=== PATIENT | female | born 1965 | race American Indian/Alaskan Native ===

== ENCOUNTER 2020-08-20 11:40 | Emergency (ER) | payer SELFPAY ==
[2020-08-20 11:53] VITALS: BP 148/99
--- NOTE | 2020-08-20 12:05 | Emergency Department Report ---
Chief Complaint: Medical Clearance Stated Complaint: REQUESTING GARRIDO TO BE REMOVED Time Seen by Provider: 08/20/20 11:53 - HPI History of Present Illness: This is a 55-year-old female nontoxic, well nourished in appearance, no acute signs of distress presents to the ED for Garrido catheter removal. Patient stated she was admitted 3 weeks ago and due to unable to void a Garrido catheter has been placed and patient was given referral to see Dr. Anderson. Patient stated that she went there today and was instructed she cannot be seen due to Covid symptoms last month. Patient then came to emergency room. Patient otherwise denies any complaints or symptoms. Denies any abdominal pain, pelvic pain, chest pain, shortness of breath, fever, chills, nausea, vomiting, headache or stiff neck. - Exam Vital Signs: Vital Signs 08/20/20 11:45 Temperature 97.7 F Pulse Rate 95 H Respiratory 16 Rate Blood Pressure 148/99 O2 Sat by Pulse 99 Oximetry Physical Exam: My physical exam GENERAL: The patient is a well-developed, well-nourished in no apparent distress. Patient is alert and acting appropriately for age. Alert and oriented 3, no apparent distress, normal gait, atraumatic. LUNGS: Respiratory rate normal. HEART: Regular rate ABDOMEN: Soft, nontender, and nondistended. No guarding or rebound tenderness. Garrido catheter is intact. Good urine outflow. Urine is clear. NEUROLOGIC: Alert and oriented x 3. PSYCHIATRIC: Normal affect with no suicidal or homicidal ideations. MSE screening note: Focused history and physical exam performed. Due to findings the following was ordered: ED Medical Decision Making - Lab Data Lab Results 08/20/20 Range/Units Unknown Urine Color Yellow (Yellow) Urine Turbidity Cloudy (Clear) Urine pH 5.0 (5.0-7.0) Ur Specific [place] 1.013 (1.003-1.030) Urine Protein 30 mg/dl (Negative) mg/dL Urine Glucose (UA) Neg (Negative) mg/dL Urine Ketones Neg (Negative) mg/dL Urine Blood Lg (Negative) Urine Nitrite Neg (Negative) Urine Bilirubin Neg (Negative) Urine Urobilinogen < 2.0 (<2.0) mg/dL Ur Leukocyte Esterase Tr (Negative) Urine WBC (Auto) 8.0 H (0.0-6.0) /HPF Urine RBC (Auto) 183.0 (0.0-6.0) /HPF U Epithel Cells (Auto) < 1.0 (0-13.0) /HPF Urine Bacteria (Auto) 1+ (Negative) /HPF Hyaline Casts 1 /LPF Urine Mucus Few /HPF - Medical Decision Making The Garrido cath has been replaced due to sanitation concerns and possible Garrido leakage. RN inserted the garrido. Patient is stable and was examined by me. Exam is unremarkable. Vital signs are stable. The Garrido catheter has not been removed due to patient needing a urologist for further evaluation and treatment. Patient was instructed to follow-up with a primary care and urologist doctor in 3-5 days or if symptoms worsen and continue return to emergency room as soon as possible. At time of discharge, the patient does not seem toxic or ill in appearance. No acute signs of distress noted. Patient agrees to discharge treatment plan of care. No further questions noted by the patient. ED Disposition for MSE Clinical Impression: Encounter for Garrido catheter replacement Disposition: DC-01 TO HOME OR SELFCARE Is pt being admited?: No Does the pt Need Aspirin: No Condition: Stable Instructions: Indwelling Urinary Catheter Care, Adult Additional Instructions: Follow-up with a primary care and urologist doctor in 3-5 days or if symptoms worsen and continue return to emergency room as soon as possible. Referrals: PRIMARY MD ROOSEVELT [Referring] - 3-5 Days FRANCY LANDAVERDE MD [Staff Physician] - 3-5 Days JAZLYN ANDERSON MD [Staff Physician] - 3-5 Days Time of Disposition: 12:05
[2020-08-20 12:55] LABS: Bacteria,Urine 1+ /HPF (Negative); Bilirubin,Urine NEG (Negative); Blood,Urine LG (Negative); Color,Urine Yellow (Yellow); Hyaline Casts,Urine 1 /LPF; Mucus,Urine FEW /HPF; Urobilinogen,Urine < 2.0 mg/dL (<2.0)
== END 2020-08-20 13:14 | disposition home or self-care (01) ==
LOC: ED 11:40
DX: Z46.6 Encounter for fitting and adjustment of urinary device (principal); Z88.8 Allergy status to other drugs, medicaments and biological substances
CPT/HCPCS: 51702; 81001; 99283